=== PATIENT | male | born 1965 ===

== ENCOUNTER 2017-04-17 14:51 | Emergency (ER) | payer MEDICAID ==
[2017-04-17 14:51] VITALS: BMI 25.1
[2017-04-17 15:23] VITALS: O2SAT 100
[2017-04-17] MEDS ORDERED: Sodium Chloride 0.9% 1,000 ML IV ONE (16:10)
[2017-04-17] MEDS ORDERED: Sodium Chloride 0.9% 1,000 ML ONE (16:21)
[2017-04-17 16:33] LABS: BASO % 0.2 % (0.0-2.0); EOS # 0.1 K/uL (0.0-0.7); EOS % 1.2 % (0.0-4.0); HEMATOCRIT 40.9 % (35.0-51.0); LYMPH # 2.4 K/uL (1.0-4.3); LYMPH % 36.4 % (20.0-40.0); MEAN CELL VOLUME 90.7 fL (80.0-94.0); MEAN CORPUSCULAR HEMOGLOBIN 30.6 pg (27.0-31.0); MEAN CORPUSCULAR HGB CONC 33.7 g/dL (33.0-37.0); MEAN PLATELET VOLUME 8.7 fL (7.2-11.7); MONO # 0.4 K/uL (0.0-0.8); MONO % 6.4 % (0.0-10.0); RED CELL DISTRIBUTION WIDTH 13.4 % (11.5-14.5); WHITE BLOOD COUNT 6.6 K/uL (4.8-10.8)
[2017-04-17 16:40] LABS: RBC URINE 3 /hpf (0-3); URINE BILIRUBIN NEGATIVE (NEGATIVE); URINE BLOOD NEGATIVE (NEGATIVE); URINE COLOR Yellow (YELLOW); URINE GLUCOSE (UA) NORMAL (Normal); URINE KETONE NEGATIVE (NEGATIVE); URINE LEUKOCYTE ESTERASE NEG Leu/uL (Negative); URINE PROTEIN NEGATIVE (NEGATIVE); URINE UROBILINOGEN NORMAL mg/dL (0.2-1.0); WBC URINE 1 /hpf (0-5)
[2017-04-17 16:41] LABS: CHLORIDE 100 mmol/L (98-107); POTASSIUM 5.6 mmol/L (3.6-5.2); SODIUM 133 mmol/L (132-148)
[2017-04-17 16:44] LABS: ALB/GLOB RATIO 1.2 (1.0-2.1); ALKALINE PHOSPHATASE 55 U/L (38-126); ALT/SGPT 35 U/L (21-72); AST/SGOT 51 U/L (17-59); BILIRUBIN,TOTAL 1.2 mg/dL (0.2-1.3); BLOOD UREA NITROGEN 16 mg/dL (9-20); CALCIUM 8.4 mg/dl (8.6-10.4); CARBON DIOXIDE 25 mmol/L (22-30); GFR AFRICAN-AMERICAN > 60; GLUCOSE,RANDOM 76 mg/dL (75-110); TOTAL PROTEIN 7.6 g/dL (6.3-8.3)
[2017-04-17] MEDS ORDERED: Sod Polystyrene Sulf 15 gm/60 ml Susp PO ONE (16:49)
--- NOTE | 2017-04-17 17:21 | C.PDOC ---
History Of Present Illness 51 year old male, with no significant PMHx, presents to the ED for evaluation of generalized body pain which began yesterday. Patient states he has "pain from my head to my toes." Patient has not taken any medicine for his symptoms and denies fever, chills, dizziness, vision change, chest pain, cough, abdominal pain, nausea, vomiting at this time. Time Seen by Provider: 04/17/17 15:43 Chief Complaint (Nursing): Dizziness/Lightheaded History Per: Patient History/Exam Limitations: no limitations Onset/Duration Of Symptoms: Hrs Current Symptoms Are (Timing): Still Present Fall Associated With With Symptoms: No Additional History Per: Patient Past Medical History Reviewed: Historical Data, Nursing Documentation, Vital Signs Vital Signs: Last Vital Signs Temp 97.4 F L 04/17/17 17:50 Pulse 66 04/17/17 17:50 Resp 18 04/17/17 17:50 BP 114/71 04/17/17 17:50 Pulse Ox 100 04/17/17 18:41 - Medical History PMH: Back Problems, Depression Denies: Diabetes, Hepatitis, HIV, HTN, Seizures, Sexually Transmitted Disease Surgical History: No Surg Hx - [facility] Procedures ANESTH INJECT-SPIN CANAL (01/04/13) INJECT STEROID (01/04/13) LUMBOSAC SPINE X-RAY NEC (01/04/13) PHYSICAL THERAPY NEC (11/08/14) SPINAL CANAL INJECT NEC (01/04/13) Family History: States: Unknown Family Hx - Social History Hx Tobacco Use: No Hx Alcohol Use: No Hx Substance Use: No - Immunization History Hx Tetanus Toxoid Vaccination: No Hx Influenza Vaccination: No Hx Pneumococcal Vaccination: No Review Of Systems Constitutional: Negative for: Fever, Chills Eyes: Negative for: Vision Change Respiratory: Negative for: Cough Gastrointestinal: Negative for: Abdominal Pain Musculoskeletal: Positive for: Other (generalized body pain ) Neurological: Negative for: Dizziness Physical Exam - Physical Exam Appears: Non-toxic, No Acute Distress Skin: Normal Color, Warm, Dry Head: Atraumatic, Normacephalic Eye(s): bilateral: Normal Inspection Oral Mucosa: Moist Neck: Supple Chest: Symmetrical, No Deformity, No Tenderness Cardiovascular: Rhythm Regular, No Murmur Respiratory: Normal Breath Sounds, No Rales, No Rhonchi, No Wheezing Gastrointestinal/Abdominal: Soft, No Guarding, No Rebound Back: Normal Inspection, No Vertebral Tenderness, No Paraspinal Tenderness Extremity: Normal ROM, Capillary Refill (less than 2 seconds ) Neurological/Psych: Oriented x3, Normal Speech, Normal Cognition Gait: Steady ED Course And Treatment - Laboratory Results Result Diagrams: 04/17/17 16:29 04/17/17 16:29 ECG: Interpreted By Me, Viewed By Me, Discussed With Harpsichord Maker ECG Rhythm: Sinus Rhythm Rate From EC O2 Sat by Pulse Oximetry: 100 (on RA) Pulse Ox Interpretation: Normal Progress Note: Labs, EKG ordered and reviewed. Kayexalate PO, Toradol IVP, and IV Fluids administered. On reassessment, patient is resting comfortably, showing no signs of distress and reports an improvement in his symptoms. Patient is stable for discharge and is advised to follow up with his PMD within 2-5 days and/or return to the ED if symptoms return or worsen. Case discsused with Dr Ospina , agreed upon plan and discharge. Reassessment Condition: Improved Disposition - Disposition Disposition: HOME/ ROUTINE Disposition Time: 17:24 Condition: STABLE Additional Instructions: Follow up with your primary medical doctor or clinic in 2-5 days for further evaluation. Take medications as prescribed. Return to the emergency department at any time if symptoms persist or worsen. Prescriptions: Naproxen [Naprosyn] 1 tab PO BID PRN #20 tab PRN Reason: Pain Instructions: Arthralgia (ED) Forms: [facility] (Maltese) - Clinical Impression Clinical Impression: Body aches - PA / CELL CLEANER / Resident Statement MD/DO has reviewed & agrees with the documentation as recorded. - Scribe Statement The provider has reviewed the documentation as recorded by the Scribe (Brenda Price) All medical record entries made by the Scribe were at my direction and personally dictated by me. I have reviewed the chart and agree that the record accurately reflects my personal performance of the history, physical exam, medical decision making, and the department course for this patient. I have also personally directed, reviewed, and agree with the discharge instructions and disposition.
[2017-04-17] MEDS ORDERED: Sod Polystyrene Sulf 15 gm/60 ml Susp ONE (17:29)
[2017-04-17 17:51] VITALS: BP 114/71; PULSE 66; RESP 18; TEMP 97.4
== END 2017-04-17 17:52 | disposition home or self-care (01) ==
LOC: C.ER 14:51
DX: R52 Pain, unspecified (principal)
CPT/HCPCS: 80053; 80324; 80345; 80346; 80349; 80353; 80358; 80361; 81001; 83992; 85025; 96361; 96374; 99285; J1885; J7040

== ENCOUNTER 2018-05-30 11:06 | Emergency (ER) | payer MEDICAID ==
[2018-05-30 11:07] VITALS: BMI 25.1
[2018-05-30 11:15] VITALS: BP 115/75; PULSE 72; RESP 18; TEMP 98.1; O2SAT 97
--- NOTE | 2018-05-30 11:58 | C.PDOC ---
History Of Present Illness 52-year-old male presents to the ED complaining of 2 week history of right eye discomfort. States he initially noticed a bump there and used [id number] stye cream and applied warm compresses. Patient reports persistent discomfort to the area, and the stye has grown despite treatment. He denies any vision changes, headache, discharge, pain, or itching. Time Seen by Provider: 05/30/18 11:43 Chief Complaint (Nursing): Eye Problem History Per: Patient History/Exam Limitations: no limitations Onset/Duration Of Symptoms: Days (x14) Current Symptoms Are (Timing): Still Present Quality: Other (Discomfort, "feels like something is sitting on my eyelid") Wears Contact Lens?: No Associated Symptoms: denies: Pain, Decreased Vision, Itching, Discharge From Eye Past Medical History Reviewed: Historical Data, Nursing Documentation, Vital Signs Vital Signs: Last Vital Signs Temp 98.1 F 05/30/18 11:12 Pulse 72 05/30/18 11:12 Resp 18 05/30/18 11:12 BP 115/75 05/30/18 11:12 Pulse Ox 97 05/30/18 11:12 - Medical History PMH: Back Problems, Depression - [facility] Procedures ANESTH INJECT-SPIN CANAL (01/04/13) INJECT STEROID (01/04/13) LUMBOSAC SPINE X-RAY NEC (01/04/13) PHYSICAL THERAPY NEC (11/08/14) SPINAL CANAL INJECT NEC (01/04/13) Family History: States: Unknown Family Hx - Social History Hx Tobacco Use: No Hx Alcohol Use: No Hx Substance Use: No - Immunization History Hx Tetanus Toxoid Vaccination: No Hx Influenza Vaccination: No Hx Pneumococcal Vaccination: No Review Of Systems Constitutional: Negative for: Fever, Chills Eyes: Positive for: Eyelid Inflammation (with stye to right upper eyelid). Negative for: Pain, Vision Change, Redness, Other (discharge or itching) Physical Exam - Physical Exam Appears: Well, Non-toxic, No Acute Distress Skin: Warm, Dry, No Rash Head: Atraumatic, Normacephalic Eye(s): bilateral: PERRL, EOMI, right: Other (non-tender nodule to the right upper eyelid margin, no conjunctival injection) Nose: Normal Oral Mucosa: Moist Neck: Normal ROM, Supple Chest: Symmetrical Neurological/Psych: Oriented x3, Normal Speech Gait: Steady ED Course And Treatment O2 Sat by Pulse Oximetry: 97 (RA) Pulse Ox Interpretation: Normal Medical Decision Making Medical Decision Making: Clinical Impression: Patient with eye nodule most consistent with chalazion. Recommend warm compress, antibiotic ointment and to follow up with optho for possible drainage. Disposition Counseled Patient/Family Regarding: Diagnosis, Need For Followup, Rx Given - Disposition Referrals: Josef Irby [Staff Provider] - Disposition: HOME/ ROUTINE Disposition Time: 11:56 Condition: GOOD Additional Instructions: Apply warm towel to eye apply ointment to eye Follow up with marketing communications specialist for further care Prescriptions: Erythromycin 0.5% [Erythromycin] 1 applic OD BID #1 tube Instructions: Chalazion Forms: [employer] ([place]) Connect (Tajik) - POA Present On Arrival: None - Clinical Impression Clinical Impression: Chalazion right upper eyelid - PA / DECISION SCIENCE ANALYST / Resident Statement MD/DO has reviewed & agrees with the documentation as recorded. - Scribe Statement The provider has reviewed the documentation as recorded by the Scribjason Summers All medical record entries made by the Scribe were at my direction and personally dictated by me. I have reviewed the chart and agree that the record accurately reflects my personal performance of the history, physical exam, medical decision making, and the department course for this patient. I have also personally directed, reviewed, and agree with the discharge instructions and disposition.
== END 2018-05-30 12:07 | disposition home or self-care (01) ==
LOC: C.ER 11:06
DX: H00.11 Chalazion right upper eyelid (principal)